=== PATIENT | female | born 1980 | race Caucasian/White ===

== ENCOUNTER → 2016-11-24 | Day surgery (SDC) | payer OTHER ==
[~2016-11-24] VITALS: Ht 162.6 cm; Wt 68.1 kg
[~2016-11-24] MED LIST: Atropine 0.4 mg/mL Inj IVPUSH PRN; Bupivacaine-MPF 0.5% 30 mL Inj INFILTRATE ONE; CeFAZolin 2 Gm/50 mL D5W Duplex Bag IV ONE; CeFAZolin Inj 2 GM in Dextrose 5% 50 ML IV ONE; CeFAZolin Inj 2 GM in IV Premix 1 EACH IV ONE; Dexamethasone 4 mg/mL Inj INTRARTICU ONE; Dexamethasone 4 mg/mL Inj IVPUSH PRN; EPHEDrine Sulfate 50 mg/mL Inj IVPUSH PRN; HYDROmorphone 1 mg/mL Inj IVPUSH PRN; Labetalol 5 mg/mL 20 mL Inj IV PRN; Lactated Ringer's 1,000 ML IV SCH; Lactated Ringer's 500 ML IV PRN; Lidocaine 2%-Epi 1:100,000 20 mL Inj INFILTRATE ONE; Ondansetron 2 mg/mL 2 mL Inj IVPUSH PRN; Ondansetron 2 mg/mL 2 mL Inj ONE; Phenylephrine 10,000 mCg/mL Inj IVPUSH PRN; Propofol 10,000 mCg/mL 20 mL Inj ONE; fentaNYL-PF 50 mCg/mL 2 mL Inj IVPUSH PRN; fentaNYL-PF 50 mCg/mL 2 mL Inj ONE; hydrALAZINE 20 mg/mL Inj IVPUSH PRN
[2016-11-24] MEDS: Lactated Ringer's 1,000 ML IV SCH ×2 (06:14→07:27)
[2016-11-24 06:25] VITALS: BP 134/88; PULSE 90; RESP 16; O2SAT 100
--- NOTE | 2016-11-24 07:14 | PCM.HPANE ---
Patient Data Surgeon Admitting Provider: Attending Provider:Carroll Herbert DPM Primary Care Physician:Lucia Other Provider:Shakir Bond Anesthesia Reason for Visit Right Foot Synovial Cysts Ht/WT & BMI Height (Feet): 5 Height (Inches): 4.00 Weight (Kilograms): 68.1 Body Mass Index 25.00 Allergies Coded Allergies: No Known Allergies (Unverified , 11/21/16) Past Anesthesia History Anesthesia History: Denies:: Abnormal Airway, Anesthesia Reactions, Difficult Intubation, Fam Anesthesia Reaction, Fam Malignant Hypertherm, Malignant Hyperthermia Diabetes History Hx Diabetes?: No Medications Home Meds Incl Beta Destiny: No No Active Prescriptions or Reported Meds History History of ENT Problems?: No HEENT History: Denies:: Abnormal Airway Cataracts Difficult Intubation Dysphagia Glaucoma Hearing Problem Sinus Problem TMJ Denture Type: None Teeth Condition: Within Normal Limits Hx of Heart Problems?: No Cardiovascular History: Denies:: AICD Abdominal Aortic Aneurism Atrial Fibrillation Cardiac Surgery Chest Pain Congestive Heart Failure Coronary Artery Disease Edema Heart Murmur Hypertension Irregular Heartbeat Pacemaker Peripheral Vascular Rheumatic Fever Thrombophlebitis Valvular Heart Disease Hx of Respiratory Problem?: No Respiratory History: Denies:: Asthma COPD Chest Surgery Cough Dyspnea Emphysema Hemoptysis Oxygen Administration Pneumonia Pulmonary Embolism Tuberculosis Use of C-PAP Machine Use of Inhalers / NEBS Hx Neurologic Problems?: No Neurological History: Denies:: Alzheimer's Disease CVA Dementia Dizziness Headaches Multiple Sclerosis Parkinson's Disease Peripheral Neuropathy Seizures TIA Hx of GI Problems?: No Gastrointestinal History: Denies:: Cirrhosis Diverticulitis Gall Bladder Disease Gastroesphageal Reflux Gastrointestinal Bleeding Heartburn Hepatitis Hiatal Hernia Liver Disease Rectal Bleeding Hx of Problems?: No Genitourinary History: Denies:: HX of Hemodialysis Kidney Stones Urinary Tract Infection Female Hx: Denies:: Currently Endometriosis Pelvic Inflammatory Problems with Breasts? Skin History: Denies:: History Skin Disorders? Pressure Ulcers Hx Musculoskeletal Problems?: Yes Musculoskeletal History: Positive for:: Musculoskeletal Trauma (right foot synovial cyst current admission problem) Denies:: Back Injury Degenerative Joint Fibromyalgia Joint Replacement Myasthenia Gravis Osteoarthritis Rheumatoid Arthritis Systemic Lupus Hx of Psycho/Social Problems?: No Psycho Social History: Denies:: Anxiety Bipolar Disorder Hx Depression Suicide Attempt Hx Surgeries?: No (unknown) Hx Any Other Health Problems?: Yes Other History: Denies:: Cancer Endocrine Disease Hospitalization Thyroid Disease History Blood Transfusions: Positive for:: Accept Blood Products? Denies:: Blood Transfuse Reaction Blood Transfusions Hx Diabetes: No Hx Alcohol Use: YesAlcoholic Drinks Per Day: 1-2 drinks dailyHave You Smoked inLast 12 mo: No Stop/Bang S-Snoring: Do You Snore Loudly: No T-Tired: feel tired, fatigued: No O-Obsered: Observed not breath: No P-Blood Pressure: treated: No B- Body Mass Index > 35 kg/m2: No A- Age over 50: No N- Neck Large Circumference: No G- Gender Male: No BETTYE Total Score: 0 Risk Assessment Category Category 1A: Patient has history of documented sleep apnea, and HAS NOT received any narcotic, sedative or anesthesia administration during this stay. Category 1B: Patient has history of documented sleep apnea, and HAS received any narcotic , sedative or anesthesia administration during this stay Category 2: Patient has SUSPECTED Obstructive Sleep Apnea, and HAS received any narcotic , sedative or anesthesia administration during this stay. Category 3: Patient has SUSPECTED Obstructive Sleep Apnea and HAS NOT received narcotic, sedative or anesthesia administration during this stay. Category 4: Outpatient in Procedural Areas with known sleep apnea or who screen positive for High Risk via the STOP/BANG questionnaire. Exam Exam Vital Signs Vital Signs Date Time Temp Pulse Resp B/P Pulse Ox O2 Delivery O2 Flow Rate FiO2 11/24/16 06:25 36.2 90 16 134/88 100 Room Air General Appearance: Alert, Oriented X3, Cooperative HEENT/AIRWAY: MP 1 Lungs: Clear to Auscultation Heart: Exam Unremarkable Meds/Labs/Diagnostics Admission Meds Current Medications Lactated Ringer's (Lr) 1,000 ml @ 120 mls/hr [id number] IV Last administered on t 06:14; Start 11/24/16 at 05:00; Stop 11/24/16 at 13:19 Plan Impression Patient chart reviewed, patient interviewed and anesthestic plan with risks, benefits, and alternatives discussed, and informed consent obtained. ASA Physical Status: ASA1 Normal Healthy Anesthetic Plan: MAC Bene/Risks/Altern/Consents: Yes HP Complete Prior to Induction: Yes Marcellus Love MD Nov 24, 2016 07:14
[2016-11-24 10:05] VITALS: BP 115/80; PULSE 98; RESP 16; O2SAT 97
[2016-11-24 10:37] VITALS: BP 19/81; PULSE 84; RESP 16; O2SAT 98
--- NOTE | 2016-11-24 10:51 | PCM.ANEP1 ---
Post Anesthesia PACU Phase 1 Assessment Vital Signs Vital Signs Date Time Temp Pulse Resp B/P Pulse Ox O2 Delivery O2 Flow Rate FiO2 11/24/16 10:37 36.9 84 16 19/81 98 Room Air 11/24/16 10:05 36.7 98 16 115/80 97 Room Air 11/24/16 06:25 36.2 90 16 134/88 100 Room Air Anesthetic Administered: GA Level of Alertness: Awake, talking GAO's with Equal Strength: Yes Pain: No Nausea or Vomiting: No CV Function & Hydration Stable: Yes Airway Device: Oxygen Delivery: Room Air Lungs: Normal Air Movement PACU Phase 2 Assessment Complications: No Follow up Care: No Patient Instructions Provided: N/A Marcellus Love MD Nov 24, 2016 10:51
--- NOTE | 2016-11-25 09:28 | OP ---
[address] [address] OPERATIVE REPORT PATIENT: JAMA DREW : 1980 MR#: [id number] ADMIT: 11/24/2016 JOB ID: [id number] DATE OF SURGERY: 11/24/2016 SURGEON: Carroll Herbert DPM PREOPERATIVE DIAGNOSIS(ES): Complex synovial cyst of the right foot. POSTOPERATIVE DIAGNOSIS(ES): Complex synovial cyst of the right foot. PLANNED PROCEDURE: Excision of synovial cyst, right foot. ANESTHESIA: Local with IV sedation. HEMOSTASIS: None. ESTIMATED BLOOD LOSS: Less than 10 cc. COMPLICATIONS: None. PROCEDURE AND FINDINGS: The patient was brought to the operating room and placed on table in supine position. She was placed under IV sedation. Afterwards, I performed a medial and lateral Toribio blockades with the posterior calcaneal block as well. The right foot and leg were prepped and draped in a normal sterile surgical manner. Attention was directed to the lateral aspect of the 5th MTPJ where incision was placed within skin lines and dissected down to the lesion using sharp and blunt dissection, carefully cauterizing and ligating any bleeders that were encountered. Gross appearance was consistent with a synovial cyst or possibly a neoplasm cannot be ruled out as synovial sarcoma or a giant cell tumor on gross examination. The lesion was injected with Isovue contrast followed by a fluoroscopy examination. It was found to be multi lobulated and has numerous extensions primarily lateral, dorsal lateral and plantar to the 5th MTPJ. Using both sharp and blunt dissection, I carefully freed this lesion from soft tissue. I found numerous adhesions into the periosteal plane and also to the adjacent lateral skin. These were each gently avulsed and lesion was kept intact from the site and then further inspected on the back table for gross examination. It had within it white, glistening granular debris and had very thick fibrous capsule consistent with a bursa or synovial cyst of long duration. This was sent to pathology for further microscopic examination. The wound was packed open with saline moistened gauze and attention was directed to the medial aspect of the 1st MTPJ. Incision was placed on the medial aspect of this joint within skin lines at the interface of plantar and dorsal skin. This was carried down to the lesion using sharp and blunt dissection, carefully cauterizing and/or ligating any bleeders that were encountered. The incision was also placed so as to spare the neurovascular bundles of the great toe on its medial aspect being the first proper dorsal digital nerve and first proper plantar digital nerve. The plantar nerve was observed, but carefully retracted whereas the dorsal nerve was not exposed or observed. Blunt retraction was used to further expose the lesion which was then injected with Isovue and live fluoroscopy was used to further examine its course and extent. The lesion was more rounded and less lobulated than the lateral lesion had been. It did, however, course under the proximal phalanx of the first toe and into the first interspace. The lesion was freed at all aspects and gently delivered from the surgical site. This lesion is noted to have less adhesions to adjacent tissue and less granular content. The carrillo were also noted to be somewhat thinner than the lateral lesion had been on gross examination. At that point both wounds were copiously irrigated with normal saline and I closed deeply with 3-0 Vicryl followed by subcutaneous 4-0 Vicryl with distal external knots placed as anchor. The skin was further stabilized with a series of Steri-Strips over Mastisol skin adhesive. Dressings included saline moistened Goodwin silk, further saline moistened 4x4s, Kerlix roll and tubular stockinette and two Alfredito bandages placed loosely about the foot. The patient had immediate CFT to all digits throughout the procedure. Just prior to application of the dressings, I also introduced 2 cc of a 4 mg/mL dexamethasone sodium phosphate solution. Approximately 1 cc was introduced in the first interspace with 0.5 cc of medial to the 1st MTPJ and lateral to the 5th MTPJ respectively. The patient was transferred from the operating room in stable condition, having tolerated the procedure and anesthetic well. Durable posterior block was placed of 0.5% bupivacaine and the patient noted on recovery that she had no pain whatsoever at the surgical sites. After transfer to the Day Surgery, her questions were answered as were those of her family. I also provided imaging taken during the course of the procedure. POSTOPERATIVE PLAN: The patient may bear weight ad jorge. However, she is encouraged to keep the dressings clean, dry and intact until I see her in the office this next week. I have provided for her after hours numbers to contact me with any questions or problems which might arise. She is also provided with a prescription for Percocet and hydroxyzine for pain management and management of the side effects of the pain medication. The patient will follow in my regular clinic in six days unless otherwise necessary. I will call her over the weekend for a phone interview.
--- NOTE | 2016-12-01 13:02 | PATH ---
SURGICAL PATHOLOGY Attending Physician:Carroll Herbert DPM CASE STATUS: Signed Out PATIENT NAME: JAMA DREW PID: [id number] : 1980 DATE COLLECTED:11/24/2016 21:59 SPECIMEN: 1: Skin, Cyst 2: Skin, Cyst CLINICAL HISTORY: RIGHT FOOT SYNOVIAL CYSTS 1). CYST 5TH METATARSOPHALANGEAL JOINT - RIGHT FOOT (OUT AT 0842, FORMALIN AT 0845) 2). 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 - SEE COMMENT. 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 - FRAGMENT OF SYNOVIAL-LINED FIBROCONNECTIVE TISSUE WITH ASSOCIATED CHRONIC INFLAMMATION. - SEE COMMENT. ICD10 NOTE: Histologic sections in parts 1 and 2 demonstrate nodules with fibrinoid degeneration (necrobiotic palisading granulomas). The differential diagnosis includes infection, rheumatoid nodules, foreign body-type reaction, and collagen vascular diseases, among others. AFB and GMS special stains were performed to evaluate for acid fast microbacteria and fungal microorganisms and are both negative. No definite polarizable foreign material was identified within the granulomas. Clinical, serological and radiological correlation is recommended. As part of routine supervisor quality control the case was also reviewed by Dr. Alvarado has also reviewed the case and agrees with the interpretation. GROSS DESCRIPTION: The specimen is received in two formalin filled containers labeled with the patient's name. 1). The specimen is labeled "cyst fifth MTPJ-right foot" and consists of a 3.5 x 2.5 x 1.0 CM portion of tissue. 2 medical field representative sections are submitted in cassette 1A. 2). The specimen is labeled "first MTPJ-right foot cyst" and consists of a balderrama-brown rough fragmenting portion of tissue which measures 3.0 x 1.5 x 0.5 CM. Multiple medical field representative sections are submitted in cassette 2A. 11/24/2016DC MICRO DESCRIPTION: AFB and GMS special stains have been performed to evaluate for acid fast microbacteria and fungal microorganisms. Control stains show appropriate reactivity. This test was developed and its performance characteristics determined by [facility]. It has not been cleared or approved by the [place]. [place]. Food and Drug Administration. The FDA has determined that such clearance or approval is not necessary. This test is used for clinical purposes. It should not be regarded as investigational or for research. ICD-9 CODES: CPT CODES: 1: 71010, 36675, 71938 2: 49020 Electronically Signed Out Herminio Pugh MD [facility] [address], [place] [address] Technical component performed at [facility], [address], [place], [address]
== END | disposition home or self-care (01) ==
LOC: SAS 05:54
PROVIDERS: ATTEND Podiatrist
DX: M67.471 Ganglion, right ankle and foot (principal); M13.871 Other specified arthritis, right ankle and foot; M20.10 Hallux valgus (acquired), unspecified foot
CPT/HCPCS: 28090; J0690; J1100; J2250; J2405; J2704; J3010; J7120